=== PATIENT | female | born 1960 | race Caucasian/White ===

== ENCOUNTER 2019-05-01 11:48 | Outpatient (CLI) | payer BC ==
--- NOTE | 2019-05-01 12:19 | RAD ---
RIGHT KNEE 4 VIEWS: Date: 05/01/19 HISTORY: Fall with knee pain. FINDINGS: There are arthritic changes of the knee. There is medial compartment narrowing and patellofemoral spu r formation. There is a small joint effusion. Postoperative changes of the tibia are noted. IMPRESSION: Moderate arthritic changes of the knee. No acute injury. Small joint effusion. POS: OFF
== END 2019-05-01 11:49 | disposition home or self-care (01) ==
LOC: MADRAD 11:48
PROVIDERS: ATTEND Internal Medicine Hematology & Oncology
DX: W19.XXXA Unspecified fall, initial encounter (principal); M17.11 Unilateral primary osteoarthritis, right knee; M25.861 Other specified joint disorders, right knee

== ENCOUNTER 2019-11-02 10:48 | Emergency (ER) | payer BC, SELFPAY ==
[2019-11-02] MEDS ORDERED: Ondansetron ODT 4 MG TAB ONE (11:09)
[2019-11-02] MEDS ORDERED: cefTRIAXone\\ROCEPHIN 1 GM VIAL ONE (11:11)
[2019-11-02] MEDS ORDERED: Lidocaine 1% 20 ML MDV ONE (11:11)
[2019-11-02] MEDS ORDERED: Azithromycin 250 MG TAB ONE (11:11)
== END 2019-11-02 11:53 | disposition home or self-care (01) ==
LOC: MADERS 10:48
DX: J15.9 Unspecified bacterial pneumonia (principal); I10 Essential (primary) hypertension; E03.9 Hypothyroidism, unspecified; E78.5 Hyperlipidemia, unspecified; E78.00 Pure hypercholesterolemia, unspecified; F41.9 Anxiety disorder, unspecified
CPT/HCPCS: 96372; 99283; J0696; J2001; Q0162

== ENCOUNTER 2021-04-10 19:13 | Emergency (ER) | payer SELFPAY | END 2021-04-10 19:20 | disposition left against medical advice (07) | LOC: MADERS 19:13 | DX: Z53.21 Procedure and treatment not carried out due to patient leaving prior to being seen by health care provider (principal) ==

== ENCOUNTER 2021-04-12 10:17 | Emergency (ER) | payer SELFPAY ==
[2021-04-12] MEDS ORDERED: Ipratropium Bromide 2.5 ml Neb ONE ×2 (10:34→10:44)
[2021-04-12] MEDS ORDERED: Albuterol Sulfate 2.5 mg/0.5 ml Neb ONE (10:34)
[2021-04-12] MEDS ORDERED: Dexamethasone 4 MG TAB ONE (10:36)
[2021-04-12] MEDS ORDERED: Lorazepam 2 MG/ML VIAL ONE (10:36)
[2021-04-12 10:49] LABS: #Lymphocytes 1.9 thou/uL (1.20-3.40); #Monocytes 0.6 thou/uL (0.11-0.59); #Neutrophils 11.1 thou/uL (1.40-6.50); %Basophils 0.3 % (0.0-1.0); %Eosinophils 0.1 % (0.0-10.0); %Monocytes 4.3 % (0.0-10.0); %Neutrophils 81.3 % (42.0-75.0); Hemoglobin 14.1 g/dL (12.0-16.0); Mean Corpuscular HGB CONC 31.9 g/dL (32.0-36.0); Mean Corpuscular Hemoglobin 28.4 pg (27.0-31.0); Mean Corpuscular Volume 89.1 fL (78.0-98.0); Mean Platelet Volume 11.9 fL (7.4-10.4); Platelet Count 232 thou/uL (130-400); RBC Distribution Width 12.9 % (11.5-14.5); Red Blood Cell (RBC) Count 4.95 mill/uL (4.20-5.40); White Blood Cell (WBC) Count 13.6 thou/uL (4.8-10.8)
[2021-04-12 11:03] LABS: ALT (SGPT) 39 U/L (8-55); AST (SGOT) 46 U/L (5-34); Albumin 3.2 g/dL (3.4-4.8); Alkaline Phosphatase 91 U/L (40-110); Anion Gap 19 mmol/L (10-20); BUN (Urea Nitrogen) 21 mg/dL (9.8-20.1); Bilirubin, Total 0.5 mg/dL (0.2-1.2); Calc. Creatinine Clearance 0 mL/min (70-130); Calcium 8.1 mg/dL (7.8-10.44); Carbon Dioxide 22 mmol/L (23-31); Chloride 98 mmol/L (98-107); Globulin 3.1 g/dL (2.4-3.5); Glucose 115 mg/dL (80-115); Potassium 3.4 mmol/L (3.5-5.1); Protein, Total 6.3 g/dL (5.8-8.1); Sodium 136 mmol/L (136-145)
[2021-04-12 11:21] LABS: CKMB 4.7 ng/mL (0-6.6)
[2021-04-12 11:43] LABS: Magnesium 1.7 mg/dL (1.6-2.6)
[2021-04-12 12:07] LABS: SARS-CoV-2 NAA Rapid Test DETECTED (NotDetected)
[2021-04-12] MEDS ORDERED: Iopamidol 370 76% 125 ML VIAL FS ONE (12:25)
[2021-04-12] MEDS ORDERED: Sodium Chloride 0.9% 100 ML BAG ONE (12:25)
== END 2021-04-12 13:04 | disposition short-term general hospital (02) ==
LOC: MADERS 10:17
DX: U07.1 COVID-19 (principal); J12.82 Pneumonia due to coronavirus disease 2019; J96.91 Respiratory failure, unspecified with hypoxia; I21.4 Non-ST elevation (NSTEMI) myocardial infarction; E87.6 Hypokalemia; E11.9 Type 2 diabetes mellitus without complications; E03.9 Hypothyroidism, unspecified; E78.5 Hyperlipidemia, unspecified; I10 Essential (primary) hypertension; Z79.899 Other long term (current) drug therapy
CPT/HCPCS: 0240U; 36415; 71045; 71275; 80053; 82553; 83605; 83735; 83880; 84484; 85025; 86140; 93005; 96374; J2060; J3490; J7611; J8540; Q9967